=== PATIENT | female | born 1960 | race Caucasian/White ===

== ENCOUNTER → 2024-06-28 15:44 | Outpatient (REF) | payer OTHER, SELFPAY | LOC: HWWDC 15:44 | PROVIDERS: ATTENDING PHYSICIAN Obstetrics & Gynecology Gynecology; FAMILY PHYSICIAN Family Medicine | DX: Z12.39 Encounter for other screening for malignant neoplasm of breast (principal) | CPT/HCPCS: 77063; 77067 ==